=== PATIENT | male | born 1965 | race Caucasian/White ===

== ENCOUNTER 2019-11-22 10:37 | Emergency (ER) | payer MEDICARE, BC, SELFPAY ==
[2019-11-22 10:39] VITALS: BP 165/88; PULSE 89; RESP 19; O2SAT 95; BMI 35.4
--- NOTE | 2019-11-22 10:52 | XR_ITS ---
PROCEDURE: XR WRIST RT MIN 3V CLINICAL INDICATION: pain COMPARISON: No exams were available for comparison FINDINGS: No fracture or dislocation. No lytic or blastic change. There is normal mineralization. The joint spaces are well-preserved. No significant degenerative/arthritic changes. No erosive changes evident. Other findings:There is an irregular radiopaque foreign body which appears to represent a piece of metal anterior to the distal radius. This measures approximately 5 mm. IMPRESSION: No acute bony anomaly. Small metallic foreign body anteriorly Dictated by: Levi Rose MD 11/22/2019 11:29 Electronically signed by Levi Rose MD in [place] 11/22/2019 11:29
[2019-11-22 11:04] VITALS: BP 134/82; PULSE 83; O2SAT 97
--- NOTE | 2019-11-22 11:34 | HMH.EDGENADL ---
ED Disposition Clinical Impression: Right wrist sprain Disposition: Home, Self-Care Condition on Discharge: Good Prescriptions: Nabumetone 750 mg PO BID 10 Days #20 tab Transmission Status: Pending to [id number] Referrals: Filemon Henderson [Primary Care Provider] - - Critical Care Critical Care Time: No Attestation: On 11/22/19, the high probability of a clinically significant, sudden or life threatening deterioration of the following system(s) required my full and direct attention, intervention and personal management. The time I documented below is in addition to time spent performing reported procedures but includes the following listed in this critical care notation. Medical Decision Making - Ted Inquiry Pt receiving controlled substance: No Vital Signs: 11/22/19 10:39 11/22/19 11:04 Pulse Rate [Radial] 89 83 Respiratory Rate 19 Blood Pressure [Right Arm] 165/88 H 134/82 Blood Pressure Mean [Right Arm] 113 99 Blood Pressure Source [Right Arm] Automatic Cuff Blood Pressure Position [Right Arm] Sitting 02 Sat by Pulse Oximetry 95 97 Oxygen Delivery Method Room Air Room Air Orders (Tests/Meds): ORDERS Category Date Time Status XR wrist RT min 3V Stat Exams 11/22/19 10:52 Taken - Radiology Data #1 Image(s): Wrist, Hand Image Reviewed: Yes I reviewed the patient's radiology image w/the ED provider Preliminary Findings: Normal/NAD General Adult HPI - General Chief complaint: PAIN Stated complaint: AO 11/21/19 5:00 Time Seen by Provider: 11/22/19 11:34 Mode of Arrival: Ambulatory Source of Information: Patient Limitations: No Limitations Description of Symptoms (Recalled from ER Triage Doc. by RN): Hurt right wrist while using a drill yesterday - History of Present Illness HPI narrative: 54-year-old male presents the emergency department with right wrist pain. He states yesterday he was using a drill and the drill slipped out of his hand and his anterior part of his forearm did come down pretty hard on the bench. Since then he has been complaining about some pain more on the radial side than the ulnar side. He states that this pain is exacerbated with movement and flexion of the wrist. He also states that alleviation includes rest and elevation and ice. He rates his pain 4 out of 10 and classifies his pain is sharp. Patient denies any other acute symptoms.Patient denies any recent cough or shortness of breath, patient denies any sore throat or headache, patient denies any loss of taste or smell, patient denies any malaise or fatigue, patient denies any abdominal pain nausea vomiting or diarrhea. - Related Data Previous Rx's Medication Instructions Recorded Nabumetone 750 mg PO BID 10 Days #20 tab 11/22/19 Allergies Allergy/AdvReac Type Severity Reaction Status Date / Time morphine Allergy Verified 11/22/19 10:52 Acetaminophen Allergy Intermediate I-ITCHING Uncoded 05/11/17 15:32 Oxycodone Allergy Intermediate I-ITCHING Uncoded 05/11/17 15:32 [facility] History - Hepatitis A Screen Drug use history?: No High risk sexual behaviors?: No History of sexually transmitted infection?: No Currently employed?: No Childcare worker?: No Do you have indoor plumbing?: Yes Do you have electricity?: Yes Attestation statement:: This patient has been screened for Hepatitis A risk factors. I have reviewed the patient's past medical history: Yes Medical History: Reports:: Diabetes Mellitus Type 2 - Social History Educational Level: Completed High School Alcohol Intake: never Occupational Status: employed ROS Obtained: Yes All systems reviewed & no additional complaints - Constitutional Constitutional: Reports system reviewed and no additional complaints, except as docu - Eyes Eyes: Reports system reviewed and no additional complaints, except as docu - ENT Ears, Nose, Mouth, and Throat: Reports system reviewed and no additional complaints, except
[2019-11-22 11:40] VITALS: BP 134/82; PULSE 83; RESP 18; TEMP 36.9; O2SAT 97
== END 2019-11-22 11:42 | disposition home or self-care (01) ==
PROVIDERS: Emergency Provider Family Medicine; PCP Internal Medicine
DX: S63.501A Unspecified sprain of right wrist, initial encounter (principal); W22.8XXA Striking against or struck by other objects, initial encounter; Y92.018 Other place in single-family (private) house as the place of occurrence of the external cause
CPT/HCPCS: 29125; 73110; 99283

== ENCOUNTER 2020-04-10 14:26 | Emergency (ER) | payer MEDICARE, BC, SELFPAY ==
[2020-04-10 14:52] VITALS: BP 181/101; PULSE 74; RESP 14; TEMP 36.9; O2SAT 97; BMI 36.3
--- NOTE | 2020-04-10 14:59 | HMH.EDUTC ---
[facility] [place]ression: Encounter for laboratory testing for COVID-19 virus, Close exposure to COVID-19 virus Disposition: Home, Self-Care Condition on Discharge: Good Instructions: Preventing the Spread of Coronavirus Discharge Instructions, DI for Cough -- Adult, Serious Ways to Stop Smoking, Tips to Help You Stop Smoking Additional Instructions: *Monitor Temp, Over the counter Motrin or Tylenol as directed/as needed Tylenol every 4 hours and Motrin every 6 hours (as long as your family doctor has told you that you can take it) for fever or pain. and straight to ER if unable to lower temp less than 101.0 after medication given *Warm salt water gargles may help to soothe the throat *Throat Lozenges *Warm fluids like tea with honey may help to soothe the throat *Sleep elevated *Humidifier/Vaporizer Follow up IMMEDIATELY for new or worsening symptoms or no Noticeable improvement over the next 48-72 hours. 911 for difficulty breathing or swallowing You was tested for today for COVID19 your test result should be back in the next 24-48 hours, you may call to the [facility] later today or tomorrow to see if your test results are back and the result [phone] [facility] hours are 9am-9pm You was given a handout with instructions for Self Quarantine and Self isolation for while you wait on test results and what to do if they are positive If you are positive the Health Dept will be contacting you also Referrals: Filemon Henderson [Primary Care Provider] - Time of Disposition: 15:05 Medical Decision Making - Ted Inquiry Pt receiving controlled substance: No Ted was queried for this patient: No Vital Signs: 04/10/20 14:52 Temperature 98.5 F Temperature Source Oral Pulse Rate [Radial] 74 Respiratory Rate 14 Blood Pressure [Right Arm] 181/101 H Blood Pressure Mean [Right Arm] 127 Blood Pressure Source [Right Arm] Automatic Cuff Blood Pressure Position [Right Arm] Sitting 02 Sat by Pulse Oximetry 97 Oxygen Delivery Method Room Air Orders (Tests/Meds): ORDERS Category Date Time Status Covid-19 Nasal PCR Sendout Gabe Routine Lab 04/10/20 14:28 [place] [facility] [place] - [place] Stated complaint: wants covid test Time Seen by Provider: 04/10/20 14:59 Mode of Arrival: Ambulatory Source of Information: Patient Limitations: No Limitations Description of Symptoms (Recalled from Triage Doc. by RN): covid test HEENT Symptoms (Recalled from RN notes): No Resp Symptoms (Recalled from RN notes): No Skin Symptoms (Recalled from RN notes): No MS Symptoms (Recalled from RN notes): No Functional Status (Recalled from RN notes): wnl - History of Present Illness Provider Complaint: Patient states that he was recently exposed to someone who tested positive for COVID and wanted to get tested to see if he has it States that he isnt having any symptoms out of the ordinary States that he is an everyday smoker and always has a cough - Related Data Previous Rx's Medication Instructions Recorded Nabumetone 750 mg PO BID 10 Days #20 tab 11/22/19 Allergies Allergy/AdvReac Type Severity Reaction Status Date / Time morphine Allergy Verified 11/22/19 10:52 Acetaminophen Allergy Intermediate I-ITCHING Uncoded 05/11/17 15:32 Oxycodone Allergy Intermediate I-ITCHING Uncoded 05/11/17 15:32 - Worker's Comp Is this a Worker's Comp case?: No [facility] History - Hepatitis A Screen Drug use history?: No High risk sexual behaviors?: No History of sexually transmitted infection?: No Currently employed?: No Childcare worker?: No Do you have indoor plumbing?: Yes Do you have electricity?: Yes Attestation statement:: This patient has been screened for Hepatitis A risk factors. I have reviewed the patient's past medical history: Yes Medical History: Reports:: Diabetes Mellitus Type 2 - Social History Smoking Status: Current every day smoker Tobacco Type: cigarettes # Packs/Day (cigarettes): 1 Alcohol Intake: n
[2020-04-10 15:30] VITALS: BP 181/101; PULSE 74; RESP 14; TEMP 36.9; O2SAT 97
[2020-04-12 10:47] LABS: Covid-19 Nasal PCR Sendout Lex Not Detected
== END 2020-04-10 15:31 | disposition home or self-care (01) ==
PROVIDERS: Emergency Provider Nurse Practitioner; PCP Internal Medicine
DX: Z20.828 Contact with and (suspected) exposure to other viral communicable diseases (principal)
CPT/HCPCS: 99201; U0004

== ENCOUNTER → 2021-02-03 09:38 | Outpatient (CLI) | payer MEDICARE, BC, SELFPAY | PROVIDERS: PCP Internal Medicine; Visit Provider Nurse Practitioner | DX: Z20.822 Contact with and (suspected) exposure to COVID-19 (principal) | CPT/HCPCS: C9803; U0003; U0005 ==